=== PATIENT | male | born 1970 | race Caucasian/White ===

== ENCOUNTER 2020-10-27 10:33 | Emergency (ER) | payer MEDICAID ==
[~2020-10-27] VITALS: Ht 165.1 cm; Wt 81.2 kg
[2020-10-27 10:36] VITALS: BP 120/76
--- NOTE | 2020-10-27 11:00 | NUR ---
50 Y/O M BIB SELF FROM HOME, PATIENT PRESENTS TO ED WITH L LEG PAIN FR 3 DAYS THAT STARTS FROM LOWER BACK AND RADIATES DOWN LEG. PT DENIES INJURY OR FALL. 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 ER MD MADE AWARE OF PT STATUS. PMH: DENIES NKA MED: NAPROXEN 2 PO
[2020-10-27] MEDS ORDERED: KETOROLAC 60 MG/2 ML VIAL IM ONE (11:15)
[2020-10-27] MEDS ORDERED: ACET-8386 PO (11:31)
[2020-10-27] MEDS ORDERED: CYCL-711 PO (11:31)
--- NOTE | 2020-10-27 11:36 | NUR ---
Patient reports 0/10 pain at this time. All needs met.
[2020-10-27 11:43] VITALS: BP 120/76
--- NOTE | 2020-10-27 11:43 | NUR ---
Patient discharged with v/s stable. Written and verbal after care instructions given and explained. Patient alert, oriented and verbalized understanding of instructions. Ambulatory with steady gait. All questions addressed prior to discharge. ID band removed. Patient advised to follow up with PMD. Rx of Hydrocodone/Acetaminophen, Cyclobenzaprine Hcl given. Patient educated on indication of medication including possible reaction and side effects. Opportunity to ask questions provided and answered.
== END 2020-10-27 11:43 | disposition home or self-care (01) ==
LOC: MED 10:33
DX: M79.605 Pain in left leg (principal); X58.XXXA Exposure to other specified factors, initial encounter; Y93.89 Activity, other specified; Y92.89 Other specified places as the place of occurrence of the external cause; Y99.8 Other external cause status
CPT/HCPCS: 96372; 99283; J1885